=== PATIENT | female | born 1970 | race Caucasian/White ===

== ENCOUNTER 2018-01-29 20:38 | Emergency (ER) | payer OTHER ==
[~2018-01-29] VITALS: Ht 177.8 cm; Wt 88.5 kg
[~2018-01-29 20:38] MED LIST: DAYPRO600 M1 PO; DAYQUIL COLD/FL1 SG1; DUONEB 3 MG/3 ML3 M1 INH; FIORICET 325 MG1 TAB PO; MEDROL DOSEPAK4 MG PO; PREDNISONE10 MG PO; ROBAXIN750 MG PO; ROBITUSSIN AC 110 ML PO; SKELAXIN800 MG PO; VICODIN 5/500 505 MG PO; ZITHROMAX Z PA250 MG PO
[2018-01-29 20:39] VITALS: BP 153/79
[2018-01-29 22:21] LABS: BASO % 0.4 % (0.0-1.0); EOS # 0.2 10*3/uL (0.0-0.4); EOS % 2.7 % (1.0-4.0); HEMATOCRIT 36.5 % (37.0-47.0); HEMOGLOBIN 12.2 g/dl (12.0-16.0); LYMPH # 2.7 10*3/uL (1.3-4.4); LYMPH % 31.7 % (27.0-41.0); MEAN CELL VOLUME 92.6 fl (81.0-99.0); MEAN CORPUSCULAR HGB CONC 33.4 g/dl (33.0-37.0); MEAN PLATELET VOLUME 9.6 fl (9.6-12.3); MONO # 0.5 10*3/uL (0.1-1.0); MONO % 5.7 % (3.0-9.0); NEUT % 59.3 % (47.0-73.0); PLATELET COUNT AUTOMATED 241 10*3/uL (130-400); RED BLOOD COUNT 3.94 10*6/uL (4.10-5.10); RED CELL DISTRI WIDTH 12.4 % (0-14.5); WHITE BLOOD COUNT 8.4 10*3/uL (4.8-10.8)
[2018-01-29 22:40] LABS: BUN 14 mg/dl (7-24); CHLORIDE 106 mmol/L (98-107); CREATININE 0.73 mg/dL (0.55-1.02); POTASSIUM 3.6 mmol/L (3.5-5.1); SODIUM 140 mmol/L (136-145)
[2018-01-29] MEDS ORDERED: PREDNISONE20 M1 PO (23:28)
== END 2018-01-29 23:31 | disposition home or self-care (01) ==
LOC: ED 20:38
PROVIDERS: Emergency Medicine Emergency Medical Services
DX: M25.572 Pain in left ankle and joints of left foot (principal); F17.200 Nicotine dependence, unspecified, uncomplicated

== ENCOUNTER 2024-04-05 16:28 | Emergency (ER) | payer OTHER ==
[~2024-04-05] VITALS: Ht 175.2 cm; Wt 80.7 kg
[~2024-04-05 16:28] MED LIST changes: +PREDNISONE20 M1 PO
[2024-04-05 16:43] VITALS: BP 124/70
[2024-04-05] MEDS ORDERED: ZOLPIDEM10 MG PO (16:44)
[2024-04-05] MEDS ORDERED: DULOXETINE HCL20 MG PO (16:44)
[2024-04-05] MEDS ORDERED: METFORMIN HYDR750 MG PO (16:44)
[2024-04-05] MEDS ORDERED: OZEMPIC0.25 MG/03 SQ (16:44)
[2024-04-05] MEDS ORDERED: Ketorolac Tromethamine 60 MG/2 ML VIAL IM ONE (17:25)
[2024-04-05] MEDS ORDERED: TRAMADOL HCL50 MG PO (17:30)
== END 2024-04-05 18:49 | disposition home or self-care (01) ==
LOC: ED 16:28
DX: S92.511A Displaced fracture of proximal phalanx of right lesser toe(s), initial encounter for closed fracture (principal); E11.9 Type 2 diabetes mellitus without complications; Z79.899 Other long term (current) drug therapy; W22.09XA Striking against other stationary object, initial encounter; Y93.89 Activity, other specified; Y92.89 Other specified places as the place of occurrence of the external cause; Y99.8 Other external cause status

== ENCOUNTER 2024-10-23 09:45 | Emergency (ER) | payer OTHER ==
[~2024-10-23] VITALS: Ht 175.2 cm; Wt 86.2 kg
[~2024-10-23 09:45] MED LIST changes: +DULOXETINE HCL20 MG PO; +METFORMIN HYDR750 MG PO; +OZEMPIC0.25 MG/03 SQ; +TRAMADOL HCL50 MG PO; +ZOLPIDEM10 MG PO
[2024-10-23 09:56] VITALS: BP 129/77
[2024-10-23] MEDS ORDERED: Ketorolac Tromethamine 30 MG/ML VIAL IM ONE (10:15)
[2024-10-23] MEDS ORDERED: Acetaminophen/Oxycodone 5 MG/325 MG TABLET PO ONE (10:15)
[2024-10-23] MEDS ORDERED: CYCLOBENZAPRINE10 MG PO (10:56)
[2024-10-23] MEDS ORDERED: MELOXICAM15 MG PO (10:56)
== END 2024-10-23 10:58 | disposition home or self-care (01) ==
LOC: ED 09:45
DX: M54.41 Lumbago with sciatica, right side (principal); M79.604 Pain in right leg; F17.200 Nicotine dependence, unspecified, uncomplicated; Z90.49 Acquired absence of other specified parts of digestive tract

== ENCOUNTER 2025-05-16 12:25 | Emergency (ER) | payer OTHER ==
[~2025-05-16] VITALS: Ht 180.3 cm; Wt 82.1 kg
[~2025-05-16 12:25] MED LIST changes: +CYCLOBENZAPRINE10 MG PO; +MELOXICAM15 MG PO
[2025-05-16 12:50] VITALS: BP 150/73
[2025-05-16] MEDS ORDERED: SODIUM CHLORIDE 0.9% 1,000 ML IV ONE (12:55)
[2025-05-16] MEDS ORDERED: Ondansetron Hydrochloride 4 MG/2 ML VIAL IV ONE (12:55)
[2025-05-16 13:10] LABS: BASO # 0.0 10*3/uL (0.0-0.1); BASO % 0.5 % (0.0-1.0); EOS # 0.2 10*3/uL (0.0-0.4); EOS % 2.8 % (1.0-4.0); MEAN CELL VOLUME 91.2 fl (81.0-99.0); MEAN CORPUSCULAR HGB 30.7 pg (27.0-31.0); MEAN PLATELET VOLUME 9.5 fl (9.6-12.3); MONO # 0.4 10*3/uL (0.1-1.0); MONO % 5.1 % (3.0-9.0); NEUT # 4.7 10*3/uL (2.3-7.9); NEUT % 57.0 % (47.0-73.0); NUCLEATED RED BLOOD CELL 0.0 % (0.0-0.0); NUCLEATED RED BLOOD CELL 0.0 10*3/uL (0.0-0.0); PLATELET COUNT AUTOMATED 248 10*3/uL (130-400); RED CELL DISTRI WIDTH 11.8 % (0-14.5)
[2025-05-16 13:27] LABS: BUN 10 mg/dl (9-23)
[2025-05-16] MEDS ORDERED: SEPTDS PO (14:11)
[2025-05-16] MEDS ORDERED: PERCOCET 5-3251 EACH PO (14:11)
[2025-05-16] MEDS ORDERED: FLOMAX0.4 MG PO (14:11)
[2025-05-16] MEDS ORDERED: Ondansetron4 MG PO (14:11)
== END 2025-05-16 14:17 | disposition home or self-care (01) ==
LOC: ED 12:25
PROVIDERS: Emergency Medicine
DX: N13.2 Hydronephrosis with renal and ureteral calculous obstruction (principal)